=== PATIENT | male | born 1980 | race Caucasian/White ===

== ENCOUNTER → 2022-04-16 | Outpatient (CLI) | payer BC ==
--- NOTE | 2022-04-16 09:16 | Diagnostic Imaging Report ---
PROCEDURE: US Gallbladder. TECHNIQUE: Multiple real-time grayscale images were obtained over the right upper quadrant in various projections. INDICATION: Right upper quadrant abdominal pain COMPARISON: None FINDINGS: The liver is normal in size, shape and echo texture. There are no focal lesions. No intra or extrahepatic biliary dilatation is present. The common bile duct is not dilated and measures 4 mm. There is no evidence of cholelithiasis, gallbladder wall thickening, or pericholecystic fluid. The visualized portions of the head and proximal body of the pancreas are within normal limits. The distal body and tail of the pancreas are not visualized due to overlying bowel gas. There is no ascites. The right kidney measures approximately 10.3 cm in length and has a normal appearance. The visualized portions of the IVC and aorta are normal. IMPRESSION: No cholelithiasis or sonographic evidence of acute cholecystitis. Negative liver/gallbladder sonogram. Dictated by: Dictated on workstation # [id number]
== END ==
LOC: RAD 08:45
PROVIDERS: ATTEND Internal Medicine
DX: R10.11 Right upper quadrant pain (principal)
CPT/HCPCS: 76705